=== PATIENT | female | born 1990 | race Caucasian/White ===

== ENCOUNTER 2017-12-16 09:56 | Emergency (ER) | payer MEDICAID ==
--- NOTE | 2017-12-16 10:13 | Emergency Department Record ---
History of Present Illness - General Chief Complaint: Abdominal Pain Stated Complaint: CRAMPING AND BLEEDING Time Seen by Provider: 12/16/17 10:10 Source: Patient Mode of Arrival: Ambulatory Limitations: No limitations - History of Present Illness Initial Comments: The patient is here due to a one day hx of mild cramping and vaginal bleeding slightly heavier than her normal menses. Her LMP was 5 weeks ago and she did take a home preg test that was neg 3 days ago. She is concerned she is having implantation bleeding so she came to the ER. The patient basically wants to know if she is . MD Complaint: Other Onset/Timin -: Days(s) Location: Suprapubic Radiation: None Severity scale (1-10): 4 Quality: Cramping Consistency: Intermittent Improves With: Nothing Worsens With: Nothing Associated Symptoms: Denies other symptoms - Related Data LMP Date: 11/04/17 Home Medications Medication Instructions Recorded Confirmed Last Taken No Home Med [NO HOME MEDS] 12/16/17 12/16/17 Unknown Allergies Allergy/AdvReac Type Severity Reaction Status Date / Time No Known Allergies Allergy Unverified 10/11/17 09:13 Travel Screening - Travel/Exposure Within Last 30 Days Have you traveled within the last 30 days?: No Review of Systems Constitutional: Denies: Chills, Fever Past Medical History - SOCIAL HISTORY Smoking Status: Never smoker Alcohol Use: None Drug Use: None - RESPIRATORY Hx Respiratory Disorders: No - CARDIOVASCULAR Hx Cardio Disorders: No - NEURO Hx Neuro Disorders: No - GI Hx GI Disorders: No - Hx Genitourinary Disorders: No - ENDOCRINE Hx Endocrine Disorders: No - MUSCULOSKELETAL Hx Musculoskeletal Disorders: No - PSYCH Hx Psych Problems: No - HEMATOLOGY/ONCOLOGY Hx Hematology/Oncology Disorders: No Family Medical History Any Significant Family History?: No Physical Exam - General General Appearance: Alert, Oriented x3, Cooperative, No acute distress - Head Head exam: Atraumatic, Normocephalic, Normal inspection - Eye Eye exam: Normal appearance, PERRL - Neck Neck exam: Normal inspection, Full ROM. negative: Tenderness - Respiratory Respiratory exam: Normal lung sounds bilaterally. negative: Respiratory distress - Cardiovascular Cardiovascular Exam: Regular rate, Normal rhythm, Normal heart sounds - GI/Abdominal GI/Abdominal exam: Soft, Normal bowel sounds. negative: Rebound, Rigid, Tenderness - Extremities Extremities exam: Normal inspection, Full ROM, Normal capillary refill. negative: Tenderness Course Vital Signs 12/16/17 10:07 Temperature 98.0 F Pulse Rate [ 103 H Pulse Ox Probe] Respiratory 18 Rate Blood Pressure 134/84 [Left Arm] Pulse Ox 98 - Reevaluation(s) Reevaluation #1: The HCG is neg and the UA is clearly contaminated due to her menses. I did discuss the need for a repeat HCG in 2 days with the patient. She also is to return to the ER for any worsening pain, fever, or bleeding. I did offer the patient pain medicines but she states the pain is not bad at this time and she is declining. 12/16/17 10:52 Disposition Disposition: Discharge Clinical Impression: Menorrhagia Qualifiers: Menorrahagia type: with irregular cycle Qualified Code(s): N92.1 - Excessive and frequent menstruation with irregular cycle Disposition: Home, Self-Care Condition: (2) Stable Instructions: Menorrhagia (ED) Additional Instructions: Please take Tylenol or Motrin for pain and see your family doctor in 2 days for recheck and a repeat HCG. Return to the ER for any worsening symptoms. Forms: Patient Portal Access Time of Disposition: 10:51 Quality - Quality Measures Quality Measures: N/A - Blood Pressure Screening View Details: Yes Does Patient Have Any of the Following: No Blood Pressure Classification: Pre-Hypertensive BP Reading Systolic Measurement: 134 Diastolic Measurement: 84 Screening for High Blood Pressure: < Pre-Hypertensive BP, F/U Documented > [ [id number]] Pre-Hypertensive Follow-up Interventions: Referral to alternative/primary care provider.
[2017-12-16 10:23] LABS: URINE APPEARANCE CLEAR; URINE BILIRUBIN SMALL (NEGATIVE); URINE BLOOD LARGE (NEGATIVE); URINE COLOR RED; URINE GLUCOSE (UA) NEGATIVE (NEGATIVE); URINE KETONE NEGATIVE (NEGATIVE); URINE LEUKOCYTE ESTERASE TRACE (NEGATIVE); URINE NITRITE POSITIVE (NEGATIVE); URINE UROBILINOGEN 0.2 E.U./dL (0.20 - 1.00)
[2017-12-16 10:30] LABS: HCG,QUALITATIVE URINE NEGATIVE (NEGATIVE)
[2017-12-16 10:36] LABS: URINE BACTERIA 2+; URINE RBC >50 (NONE SEEN)
[2017-12-16] MEDS ORDERED: IBUPROFEN 600 MG TABLET PO ONE (10:46)
== END 2017-12-16 11:02 | disposition home or self-care (01) ==
LOC: ER 09:56
DX: N92.1 Excessive and frequent menstruation with irregular cycle (principal)
CPT/HCPCS: 81001; 81025; 99282